=== PATIENT | male | born 1990 | race Caucasian/White ===

== ENCOUNTER 2016-09-18 21:10 | Emergency (ER) | payer OTHER ==
[2016-09-18 22:26] LABS: TROPONIN I < 0.01 ng/ml (0.0-0.06)
[2016-09-18 22:27] LABS: CALCIUM 9.8 mg/dL (8.6-10.3); MAGNESIUM 1.8 mg/dL (1.9-2.7)
[2016-09-18 22:36] LABS: THYROID STIMULATING HORMONE 2.28 uIU/ml (0.34-5.60)
[2016-09-18 22:42] LABS: FREE T4 0.98 ng/dL (0.58-1.64)
--- NOTE | 2016-09-19 08:10 | RAD ---
Exam: Two-view chest COMPARISON: None INDICATION: Tachycardia. FINDINGS: PA and lateral views of the chest were obtained. Cardiac silhouette is within normal limits. Lungs are well-inflated. There is no focal airspace disease or pleural effusion. Bones of the chest wall within normal limits. IMPRESSION: Negative two-view chest.
== END 2016-09-18 22:58 | disposition home or self-care (01) ==
LOC: ED 21:10
DX: R00.0 Tachycardia, unspecified (principal); R00.2 Palpitations